=== PATIENT | female | born 1970 | race Caucasian/White ===

== ENCOUNTER → 2025-03-21 15:33 | Outpatient (REF) | payer BC, SELFPAY | LOC: WDC 15:33 | PROVIDERS: ATTENDING PHYSICIAN Family Medicine | DX: Z12.31 Encounter for screening mammogram for malignant neoplasm of breast (principal); Z00.00 Encounter for general adult medical examination without abnormal findings | CPT/HCPCS: 77063; 77067 ==

== ENCOUNTER → 2025-05-14 11:09 | Outpatient (REF) | payer BC, SELFPAY | LOC: RAD 11:09 | PROVIDERS: ATTENDING PHYSICIAN Nurse Practitioner Family; FAMILY PHYSICIAN Family Medicine | DX: M25.562 Pain in left knee (principal) | CPT/HCPCS: 73564 ==